=== PATIENT | female | born 1950 | race Caucasian/White ===

== ENCOUNTER → 2022-11-07 10:37 | Outpatient (POV) | payer MEDICARE, SELFPAY ==
--- NOTE | 2022-11-07 11:20 | EXP.PAIN.OV ---
HPI Data of Consult Patient: new to practice Consult date: 11/07/22 Requesting Physician: Mariela Oscar APRN Primary Care Provider: Daryn Hernandez MD Consult Narrative Reason for consult: Right shoulder pain, right hip pain History of present illness: Ms. Reyna is a 72 year old female who presents today as a new patient. She is a referral from [facility]. Today she rates her pain a 7 out of 10. Patient states her pain is all in her right shoulder with radiating symptoms down to her right wrist as well as her right hip. She does describe this as an aching, throbbing sensation that is constant but it is aggravated by increased activity. Patient states she does feel a grinding sensation when she moves her arm up and down with ambulation. She states her pain in her shoulder has been going on for at least a year. Patient states she did previously have an injury when she was younger where she broke her clavicle which may be contributing to some of her pain. Patient has had a cervical MRI however she does not think that she has had any shoulder imaging. Patient denies any neck pain. Patient states back in 95 she did have back surgery and overall has done well with this. She does state that her right hip she believes is also related to arthritis. She states she does do exercises at home that does apply additional pressure and she does get temporary relief. Patient denies any injection history. She states she does have a history of heart related issues and is on Plavix daily. Patient states she does not take NSAIDs on a regular basis for this reason however occasionally she will take a Motrin before going to work and then take a Tylenol about 4 hours later. She does state this does improve her symptoms. Patient states she is scheduled off work for the next several weeks due to leaving for [place] next Monday. Patient is interested in any additional help we may be able to provide to give her decreased pain. She states that overall her shoulder pain is the worst pain that she experiences. Patient is not on any scheduled medications. Her Pj is [id number]. Its been reviewed and appropriate. CC: Mariela Oscar APRN [facility] Disclaimer: The information contained in this section may have been updated after the patient was seen, as this information can be updated by other users. Medical History (Updated 11/07/22 @ 12:01 by Mariela A Oscar, CONFIDENTIAL INVESTIGATOR) CAD (coronary artery disease) GERD (gastroesophageal reflux disease) HLD (hyperlipidemia) HTN (hypertension) Hypothyroidism Myocardial infarct Osteoarthritis TIA (transient ischemic attack) Surgical History (Updated 11/07/22 @ 11:53 by Vi Espinal, RN) History of cardiac cath Family History (Updated 11/07/22 @ 11:52 by Vi Espinal, SOMMER) Other Lung cancer Social History Smoking Status: Unknown if ever smoked alcohol intake: never current occupational status: employed Travel in the last 8 weeks: None Review of Systems Review of Systems Review of systems:: pertinent systems reviewed and negative unless documented below Review of systems (narrative): Review of Systems: General: No recent weight changes, no fever, no sleep disturbances Respiratory: No cough, no shortness of air, no recurring pulmonary infections Cardiovascular/peripheral vascular: No chest pain, no palpitations, no edema, no shortness of breath Gastrointestinal: No new onset incontinence, normal bowel movements reported Genitourinary: No new onset incontinence Musculoskeletal: Right shoulder pain, right hip pain Psychiatric: [Normal mood/affect] Neurological: [Denies weakness in extremities], [denies balance issues] Meds Home Medications and Allergies Home Medications Medication Instructions Recorded Confirmed Type Saccharomyces boulardii 250 mg 250 mg PO DAILY gut health 10/10/22 11/07/22 History capsule (Probiotic (S.boulardii)) aspirin 81 mg tablet 81 mg PO DAILY heart
[2022-11-07 11:51] VITALS: BP 116/58; PULSE 76; RESP 18; O2SAT 97; BMI 30.1
== END ==
PROVIDERS: PCP Internal Medicine; Visit Provider Nurse Practitioner Family
DX: M50.10 Cervical disc disorder with radiculopathy, unspecified cervical region (principal); M25.511 Pain in right shoulder; M48.02 Spinal stenosis, cervical region; M25.551 Pain in right hip
CPT/HCPCS: 99202; G0463

== ENCOUNTER 2022-11-15 12:37 | Day surgery (SDC) | payer MEDICARE, SELFPAY ==
[2022-11-15 12:59] VITALS: BP 143/73; PULSE 69; RESP 18; TEMP 36.4; O2SAT 97; BMI 30.1
--- NOTE | 2022-11-15 13:03 | EXP.PAIN.PRO ---
Procedure Date: 11/15/22 Time: 13:00 Anesthesiologist:: Angus Louis CRNA Complications:: None Pre-procedure Diagnosis:: Osteoarthritis right shoulder. Chronic right shoulder pain. Post-procedure Diagnosis:: Same. Indications for Procedure:: Patient is a very pleasant 72-year-old female that comes our clinic today for right intra-articular shoulder injection. Patient has good strength in right arm. However, she has limited range of motion due to pain in the shoulder joint. She has had a right intra-articular shoulder injection several years ago with significant improvement. Procedure Details:: Indications for Procedure: This patient is a pleasant 74-year-old white female who we are treating for right shoulder pain with degenerative osteoarthritis. She has multi joint pain and is currently medically managed with [place] 10 mg 1 tablet 3 times a day. Right shoulder seems to be the worst at this time. We will do an intra-articular injection today to see if this helps with her pain symptoms. Procedure Details: Right shoulder intra-articular injection Informed consent was obtained risk and benefits of the procedure were explained to the patient. Patient was taken to the procedure room. The right shoulder was prepped using ChloraPrep. A 25-gauge needle was used first anteriorly, laterally, and then posteriorly to inject 10 mL bupivacaine 0.25% and Depo-Medrol 40 mg. Patient tolerated procedure well with no complications. Plan and Disposition:: Patient was discharged without incident
[2022-11-15 13:08] VITALS: BP 128/70; PULSE 62; RESP 18; O2SAT 94
== END 2022-11-15 13:08 | disposition home or self-care (01) ==
PROVIDERS: PCP Internal Medicine; Visit Provider Nurse Anesthetist, Certified Registered
DX: M19.011 Primary osteoarthritis, right shoulder (principal); M25.511 Pain in right shoulder; G89.29 Other chronic pain
CPT/HCPCS: 20610; J1040

== ENCOUNTER → 2022-11-30 13:53 | Outpatient (POV) | payer MEDICARE, SELFPAY ==
--- NOTE | 2022-11-30 14:39 | EXP.PAIN.SOA ---
[facility] Pain Management SOAP Note Subjective:: Patient is a pleasant 72-year-old female who presents today for follow-up of right shoulder intra-articular injection on 11/15/2022. We are currently treating the patient for degenerative disc disease of cervical spine with cervical radiculopathy symptoms, spinal stenosis of cervical spine, right shoulder pain, right hip pain. Today she rates her pain a 2 out of 10. Patient states she has had at least 50% improvement following this injection or more. She states she has been able to increase her activity and even was able to curl her hair with less pain symptoms. She states that she has not even needed to take Tylenol due to the improvement. She also states that she was able to go to [place] and enjoyed her vacation with decreased pain symptoms. Patient is not on any scheduled medications. Her Pj is [id number]. Its been reviewed and appropriate. Review of Systems: General: No recent weight changes, no fever, no sleep disturbances Respiratory: No cough, no shortness of air, no recurring pulmonary infections Cardiovascular/peripheral vascular: No chest pain, no palpitations, no edema, no shortness of breath Gastrointestinal: No new onset incontinence, normal bowel movements reported Genitourinary: No new onset incontinence Musculoskeletal: Right shoulder pain Psychiatric: [Normal mood/affect] Neurological: [Denies weakness in extremities], [denies balance issues] Objective:: Physical Exam: General: Alert and oriented x3, no acute distress, pleasant and cooperative Lungs: Respirations even and unlabored, symmetrical chest expansion Eyes: PERRL Musculoskeletal: Flexion and extension of right shoulder somewhat guarded secondary to pain Neurological: Speech clear, no gross sensory deficit Assessment:: Degenerative disc disease of cervical spine with cervical radiculopathy symptoms, spinal stenosis of cervical spine, right shoulder pain, right hip pain Plan:: Patient has had significant improvement of her pain symptoms in her right shoulder following her intra-articular shoulder injection and does not require any additional injective therapy at this time. Patient will return to clinic in 1 month for reevaluation of symptoms and plan of care. Patient has been instructed to contact the clinic with any concerns before the next appointment. Dr. Cook has reviewed this note and agrees with this plan of care. This note was dictated using voice recognition software and make contain errors or omissions. [facility] Disclaimer: The information contained in this section may have been updated after the patient was seen, as this information can be updated by other users. Medical History CAD (coronary artery disease) GERD (gastroesophageal reflux disease) HLD (hyperlipidemia) HTN (hypertension) Hypothyroidism Myocardial infarct Osteoarthritis TIA (transient ischemic attack) Surgical History History of cardiac cath Family History Other Lung cancer Social History Smoking Status: Unknown if ever smoked alcohol intake: never current occupational status: employed Travel in the last 8 weeks: None
[2022-11-30 14:58] VITALS: BP 120/66; PULSE 67; RESP 18; O2SAT 97; BMI 30.1
== END ==
PROVIDERS: PCP Internal Medicine; Visit Provider Nurse Practitioner Family
DX: M50.10 Cervical disc disorder with radiculopathy, unspecified cervical region (principal); M48.02 Spinal stenosis, cervical region; M25.511 Pain in right shoulder; M25.551 Pain in right hip
CPT/HCPCS: 99212; G0463

== ENCOUNTER → 2022-12-29 10:42 | Outpatient (POV) | payer MEDICARE, SELFPAY ==
[2022-12-29 10:50] VITALS: BP 134/66; PULSE 75; RESP 18; O2SAT 98; BMI 30.1
--- NOTE | 2022-12-29 10:54 | EXP.PAIN.SOA ---
[facility] Pain Management SOAP Note Subjective:: Patient is a pleasant 72-year-old female who presents today for 1 month follow-up. We are currently treating the patient for degenerative disc disease of cervical spine with cervical radiculopathy symptoms, spinal stenosis of cervical spine, right shoulder pain, right hip pain. Today she rates her pain a 0 out of 10. She states that she continues to get significant relief following her right shoulder intra-articular injection back at the beginning of November. Patient states she continues to be able to increase her activity and even we dated yesterday. Patient states by last night she did have a little soreness but today she is back to no pain. Patient in the past has just use Tylenol as needed however she continues to states she has not even needed that medication. She is not on any scheduled medications. Her Pj is [id number]. Its been reviewed and appropriate. Review of Systems: General: No recent weight changes, no fever, no sleep disturbances Respiratory: No cough, no shortness of air, no recurring pulmonary infections Cardiovascular/peripheral vascular: No chest pain, no palpitations, no edema, no shortness of breath Gastrointestinal: No new onset incontinence, normal bowel movements reported Genitourinary: No new onset incontinence Musculoskeletal: Right shoulder pain Psychiatric: [Normal mood/affect] Neurological: [Denies weakness in extremities], [denies balance issues] Objective:: Physical Exam: General: Alert and oriented x3, no acute distress, pleasant and cooperative Lungs: Respirations even and unlabored, symmetrical chest expansion Eyes: PERRL Musculoskeletal: Flexion and extension of right shoulder somewhat guarded secondary to pain, [antalgic gait noted] Neurological: Speech clear, no gross sensory deficit Assessment:: Degenerative disc disease of cervical spine with cervical radiculopathy symptoms, spinal stenosis of cervical spine, right shoulder pain, right hip pain Plan:: Patient continues to have significant relief following her intra-articular shoulder injection and does not require any additional injective therapy. Patient will follow-up in clinic in 3 months for reevaluation of symptoms and plan of care. Patient has been instructed to contact the clinic with any concerns before the next appointment. Dr. Cook has reviewed this note and agrees with this plan of care. This note was dictated using voice recognition software and make contain errors or omissions. [facility] Disclaimer: The information contained in this section may have been updated after the patient was seen, as this information can be updated by other users. Medical History CAD (coronary artery disease) GERD (gastroesophageal reflux disease) HLD (hyperlipidemia) HTN (hypertension) Hypothyroidism Myocardial infarct Osteoarthritis TIA (transient ischemic attack) Surgical History History of cardiac cath Family History Other Lung cancer Social History Smoking Status: Unknown if ever smoked alcohol intake: never current occupational status: retired Travel in the last 8 weeks: None
== END ==
PROVIDERS: PCP Internal Medicine; Visit Provider Nurse Practitioner Family
DX: M50.10 Cervical disc disorder with radiculopathy, unspecified cervical region (principal); M48.02 Spinal stenosis, cervical region; M25.511 Pain in right shoulder; M25.551 Pain in right hip
CPT/HCPCS: 99212; G0463

== ENCOUNTER 2024-01-03 12:59 | Outpatient (POV) | payer MEDICARE, SELFPAY ==
--- NOTE | 2024-01-03 13:08 | A.OFFVIS_ITS ---
[facility] Disclaimer: The information contained in this section may have been updated after the patient was seen, as this information can be updated by other users. Medical History (Updated 01/03/24 @ 13:14 by Mariela Oscar APRN) Osteoarthritis GERD (gastroesophageal reflux disease) TIA (transient ischemic attack) CAD (coronary artery disease) Myocardial infarct HTN (hypertension) HLD (hyperlipidemia) Hypothyroidism Surgical History History of cardiac cath Family History Other Lung cancer Social History Smoking Status: Unknown if ever smoked alcohol intake: never current occupational status: retired Travel in the last 8 weeks: None PM Subjective & Objective Subjective Subjective:: Patient is a pleasant 73-year-old female who presents today for 1 month follow- up. We are currently treating the patient for degenerative disc disease of cervical spine with cervical radiculopathy symptoms, spinal stenosis of cervical spine, right shoulder pain, right hip pain. Today she rates her pain a 4 out of 10. Patient denies any new trauma or injury. She does state that she is starting to have more and more pain in her right shoulder. She states that it is an aching, throbbing sensation that is worse with increased activity. She states she is starting to have more of the crunching sounds and sensations w hen she does range of motion with her shoulder. She states that it is starting to have pain that radiates down the arm to her elbow. Patient did previously have 100% relief with a right shoulder intra-articular injection that was done in November 2022. Patient states that it is worked exceptionally well up until the last month. Patient is interested in repeating this injection. Patient states she has continued to do at home exercising and stretching between her last injection to the nail. She does use Tylenol. She is not on any scheduled medications. Her Pj has been reviewed and appropriate. Review of Systems: General: No recent weight changes, no fever, no sleep disturbances Respiratory: No cough, no shortness of air, no recurring pulmonary infections Cardiovascular/peripheral vascular: No chest pain, no palpitations, no edema, no shortness of breath Gastrointestinal: No new onset incontinence, normal bowel movements reported Genitourinary: No new onset incontinence Musculoskeletal: Right shoulder pain Psychiatric: [Normal mood/affect] Neurological: [Denies weakness in extremities], [denies balance issues] Pain at rest (0-10 scale): 4 Objective Objective:: Physical Exam: General: Alert and oriented x3, no acute distress, pleasant and cooperative Lungs: Respirations even and unlabored, symmetrical chest expansion Eyes: PERRL Musculoskeletal: Flexion and extension of right shoulder somewhat guarded secondary to pain, [antalgic gait noted] Neurological: Speech clear, no gross sensory deficit Has patient had previous pain injection?: No Conservative treatment options previously tried: Home exercise plan Length of treatment: >6 weeks Meds Home Medications and Allergies Home Medications Medication Instructions Recorded Confirmed Type Saccharomyces boulardii 250 mg 250 mg PO DAILY gut health 10/10/22 12/29/22 History capsule (Probiotic (S.boulardii)) aspirin 81 mg tablet 81 mg PO DAILY heart health 10/10/22 12/29/22 History atorvastatin 20 mg tablet 20 mg PO DAILY choesterol 10/10/22 12/29/22 History carvedilol 6.25 mg tablet 6.25 mg PO DAILY blood pressure 10/10/22 12/29/22 History clopidogrel 75 mg tablet 75 mg PO DAILY Blood thinner 10/10/22 12/29/22 History levothyroxine 88 mcg tablet 88 mcg PO DAILY hypothyroid 10/10/22 12/29/22 History (Synthroid) multivitamin 1 tab PO DAILY Supplement 10/10/22 12/29/22 History nitroglycerin 0.4 mg sublingual 0.4 mg sublingual Q5M PRN Chest 10/10/22 12/29/22 History tablet Pain omeprazole 40 mg capsule,delayed 40 mg PO DAILY GERD 10/10/22 12/29/22 History release New Prescriptions to Start Prescriptions: Allergies Allergy/AdvReac Type Severity Reaction Status Date / Time meperidine [From Demerol] Allergy Verified 11/15/22 12:52 Assessment and Plan *Assessment and plan (1) Right shoulder pain: Status: Acute Qualifiers: Chronicity: chronic Qualified Code(s): M25.511 - Pain in right shoulder; G89.29 - Other chronic pain Category: Medical Code(s): M25.511 - Pain in right shoulder Plan Patient is experiencing worsening pain in her right shoulder with limited range of motion. Patient did previously have 100% relief with her last intra- articular shoulder injection and nearly lasted a full year providing significant improvement of overall function and decrease pain. I have reviewed over with the patient the risk and benefits of repeat intra-articular injection. Patient would like to proceed forward with this plan of care. Patient has continued at home stretching exercise between injections. She will be scheduled for right shoulder intra-articular injection. Patient has been instructed to contact the clinic with any concerns before the next appointment. Dr. Cook has reviewed this note and agrees with this plan of care. This note was dictated using voice recognition software and make contain errors or omissions.
[2024-01-03 15:31] VITALS: BP 131/69; PULSE 68; RESP 18; O2SAT 95; BMI 30.9
== END 2024-01-03 23:59 | disposition home or self-care (01) ==
LOC: SC.PAIN 13:00
PROVIDERS: PCP Internal Medicine; Visit Provider Nurse Practitioner Family
DX: M25.511 Pain in right shoulder (principal); G89.29 Other chronic pain
CPT/HCPCS: 99212; G0463

== ENCOUNTER 2024-01-23 12:49 | Day surgery (SDC) | payer MEDICARE, SELFPAY ==
[2024-01-23 13:05] VITALS: BP 131/68; PULSE 70; RESP 18; TEMP 36.2; O2SAT 98; BMI 30.1
[2024-01-23 13:28] VITALS: BP 122/67; PULSE 66; RESP 18; O2SAT 97
--- NOTE | 2024-01-23 13:30 | P.PCN_ITS ---
Procedure Date: 01/23/24 Time: 13:20 Anesthesiologist:: Angus Louis CRNA Complications:: None Pre-procedure Diagnosis:: DJD right shoulder. Chronic right shoulder pain. Post-procedure Diagnosis:: Same. Indications for Procedure:: Patient is a pleasant 74-year-old female comes our clinic today for repeat right intra-articular shoulder injection of cortisone. Patient had same injection a year ago and is reporting significant improvement up until a couple of weeks ago. Patient has 5/5 strength in the right arm. However, limited range of motion secondary to right shoulder pain. She rates her pain 7/10. Procedure Details:: Procedure Details: Right shoulder intra-articular injection Informed consent was obtained risk and benefits of the procedure were explained to the patient. Patient was taken to the procedure room. The right shoulder was prepped using ChloraPrep. A 25-gauge needle was used first anteriorly, laterally, and then posteriorly to inject 10 mL bupivacaine 0.25% and Depo- Medrol 40 mg. Patient tolerated procedure well with no complications. Plan and Disposition:: Patient was discharged without incident.
[2024-01-23] MEDS: methylPREDNISolone ACETATE 80MG/ML VIAL 80 MG (13:33)
[2024-01-23] MEDS: BUPIVACAINE 0.25% 10ML INJ 25 MG IJ (13:33)
[2024-01-23] MEDS: LIDOCAINE 1% 5ML PF VIAL 5 ML (13:34)
== END 2024-01-23 13:30 | disposition home or self-care (01) ==
PROVIDERS: PCP Internal Medicine; Visit Provider Nurse Anesthetist, Certified Registered
DX: M25.511 Pain in right shoulder (principal); M19.011 Primary osteoarthritis, right shoulder
CPT/HCPCS: 20610; J1010

== ENCOUNTER 2024-02-08 12:54 | Outpatient (POV) | payer MEDICARE, SELFPAY ==
[2024-02-08 13:04] VITALS: BP 108/57; PULSE 69; RESP 16; O2SAT 95; BMI 29.7
--- NOTE | 2024-02-08 13:10 | EXP.PAIN.SOA ---
[facility] Disclaimer: The information contained in this section may have been updated after the patient was seen, as this information can be updated by other users. Medical History Osteoarthritis GERD (gastroesophageal reflux disease) TIA (transient ischemic attack) CAD (coronary artery disease) Myocardial infarct HTN (hypertension) HLD (hyperlipidemia) Hypothyroidism Surgical History History of cardiac cath Family History Other Lung cancer Social History Smoking Status: Unknown if ever smoked alcohol intake: never current occupational status: retired Travel in the last 8 weeks: None PM Subjective & Objective Subjective Subjective:: Patient is a pleasant 74-year-old female who presents today for follow-up of right intra-articular shoulder injection on 01/23/2024. Today she rates her pain a 2 out of 10. Patient states she has had at least 75% relief following this injection and feels like it is still continue to provide additional relief. Patient states she has better range of motion with decreased pain. Patient states she feels much more functional. Patient does state that her blood pressure was a little up from what it normally is today. 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 Her Pj has been reviewed and is appropriate. Review of Systems: General: No recent weight changes, no fever, no sleep disturbances Respiratory: No cough, no shortness of air, no recurring pulmonary infections Cardiovascular/peripheral vascular: No chest pain, no palpitations, no edema, no shortness of breath Gastrointestinal: No new onset incontinence, normal bowel movements reported Genitourinary: No new onset incontinence Musculoskeletal: Right shoulder pain Psychiatric: [Normal mood/affect] Neurological: [Denies weakness in extremities], [denies balance issues] Pain at rest (0-10 scale): 2 Objective Objective:: Physical Exam: General: Alert and oriented x3, no acute distress, pleasant and cooperative Lungs: Respirations even and unlabored, symmetrical chest expansion Eyes: PERRL Musculoskeletal: Flexion and extension of right shoulder somewhat guarded secondary to pain, [antalgic gait noted] Neurological: Speech clear, no gross sensory deficit Has patient had previous pain injection?: Yes Percent improvement in pain since last injection: 75% Conservative treatment options previously tried: Home exercise plan Length of treatment: Longer than 6 weeks Meds Home Medications and Allergies Home Medications ?Medication ?Instructions ?Recorded ?Confirmed ?Type Saccharomyces boulardii 250 mg 250 mg PO DAILY gut health 10/10/22 02/08/24 History capsule (Probiotic (S.boulardii)) aspirin 81 mg tablet 81 mg PO DAILY heart health 10/10/22 02/08/24 History atorvastatin 20 mg tablet 20 mg PO DAILY choesterol 10/10/22 02/08/24 History carvedilol 6.25 mg tablet 6.25 mg PO DAILY blood pressure 10/10/22 02/08/24 History clopidogrel 75 mg tablet 75 mg PO DAILY Blood thinner 10/10/22 02/08/24 History levothyroxine 88 mcg tablet 88 mcg PO DAILY hypothyroid 10/10/22 02/08/24 History (Synthroid) multivitamin 1 tab PO DAILY Supplement 10/10/22 02/08/24 History nitroglycerin 0.4 mg sublingual 0.4 mg sublingual Q5M PRN Chest 10/10/22 02/08/24 History tablet Pain omeprazole 40 mg capsule,delayed 40 mg PO DAILY GERD 10/10/22 02/08/24 History release New Prescriptions to Start Prescriptions: Allergies Allergy/AdvReac Type Severity Reaction Status Date / Time meperidine [From Demerol] Allergy Verified 11/15/22 12:52 Assessment and Plan *Assessment and plan (1) Right shoulder pain: Status: Acute Qualifiers: Chronicity: chronic Qualified Code(s): M25.511 - Pain in right shoulder; G89.29 - Other chronic pain Category: Medical Code(s): M25.511 - Pain in right shoulder Plan Patient has had significant improvement following her intra-articular injection and does not require any additional injection therapy at this time. I have counseled the patient to keep an eye on her blood pressure and to monitor at home and even do a journal and that she can always review this with her PCP in case medication changes need to be made. Patient will return to clinic in 2 months for reevaluation of symptoms and plan of care. Patient has been instructed to contact the clinic with any concerns before the next appointment. Dr. Cook has reviewed this note and agrees with this plan of care. This note was dictated using voice recognition software and make contain errors or omissions. All injections are used with Lidocaine or Bupivacaine and Depo Medrol. .
== END 2024-02-08 23:59 | disposition home or self-care (01) ==
LOC: SC.PAIN 12:56
PROVIDERS: PCP Internal Medicine; Visit Provider Nurse Practitioner Family
DX: M25.511 Pain in right shoulder (principal); G89.29 Other chronic pain
CPT/HCPCS: 99212; G0463